=== PATIENT | female | born 1970 | race Caucasian/White ===

== ENCOUNTER 2023-09-28 10:33 | Outpatient (OUT) | payer MEDICARE, SELFPAY ==
--- NOTE | 2023-09-28 | XR_ITS ---
[address] [address] Patient Name: PRACHI PARHAM MRN: [id number] date: 1970 Sex: F Assigned Patient Location: Current Patient Location: Accession/Order Number: [id number] Exam Date: 09/28/2023 10:38 Report Date: 09/28/2023 11:41 At the request of: SRIDHAR GUTIÉRREZ Procedure: XR foot TAMIKO min 3V EXAMINATION: XR ankle TAMIKO min 3V, XR foot TAMIKO min 3V HISTORY: BILATERAL ANKLE PAIN COMPARISON: No relevant comparison available. FINDINGS: RIGHT FINDINGS: BONES: No acute fracture or dislocation. Moderate enthesopathic spurring of the calcaneus. Mild degenerative changes with marginal osteophyte formation SOFT TISSUES: Anterior distal lower leg soft tissue calcifications, nonspecific OTHER: Negative. LEFT FINDINGS: BONES: No acute fracture or dislocation. Moderate enthesopathic spurring of the calcaneus. Mild degenerative changes with marginal osteophyte formation SOFT TISSUES: Negative. No visible soft tissue swelling. OTHER: Negative. XR/XR foot TAMIKO min 3V IMPRESSION: RIGHT CONCLUSION: Mild degenerative changes with enthesopathic spurring of the calcaneus LEFT CONCLUSION: Mild degenerative changes with enthesopathic spurring of the calcaneus Electronically authenticated by: WILLAM PAGE Date: 09/28/2023 11:41
--- NOTE | 2023-09-28 | XR_ITS ---
[address] [address] Patient Name: PRACHI PARHAM MRN: [id number] date: 1970 Sex: F Assigned Patient Location: Current Patient Location: Accession/Order Number: [id number] Exam Date: 09/28/2023 10:38 Report Date: 09/28/2023 11:41 At the request of: SRIDHAR GUTIÉRREZ Procedure: XR ankle TAMIKO min 3V EXAMINATION: XR ankle TAMIKO min 3V, XR foot TAMIKO min 3V HISTORY: BILATERAL ANKLE PAIN COMPARISON: No relevant comparison available. FINDINGS: RIGHT FINDINGS: BONES: No acute fracture or dislocation. Moderate enthesopathic spurring of the calcaneus. Mild degenerative changes with marginal osteophyte formation SOFT TISSUES: Anterior distal lower leg soft tissue calcifications, nonspecific OTHER: Negative. LEFT FINDINGS: BONES: No acute fracture or dislocation. Moderate enthesopathic spurring of the calcaneus. Mild degenerative changes with marginal osteophyte formation SOFT TISSUES: Negative. No visible soft tissue swelling. OTHER: Negative. XR/XR ankle TAMIKO min 3V IMPRESSION: RIGHT CONCLUSION: Mild degenerative changes with enthesopathic spurring of the calcaneus LEFT CONCLUSION: Mild degenerative changes with enthesopathic spurring of the calcaneus Electronically authenticated by: WILLAM PAGE Date: 09/28/2023 11:41
== END 2023-09-28 10:34 | disposition home or self-care (01) ==
PROVIDERS: Visit Provider Podiatrist Foot & Ankle Surgery
DX: M25.571 Pain in right ankle and joints of right foot (principal); M25.572 Pain in left ankle and joints of left foot; M79.671 Pain in right foot; M79.672 Pain in left foot; M77.32 Calcaneal spur, left foot; M77.31 Calcaneal spur, right foot
CPT/HCPCS: 73610; 73630

== ENCOUNTER 2024-01-14 17:46 | Emergency (ER) | payer MEDICARE, SELFPAY ==
[2024-01-14 17:54] VITALS: BP 170/92; PULSE 79; TEMP 36.6; O2SAT 96; BMI 31.3
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
[2024-01-14 19:44] VITALS: BP 142/88
[2024-01-14] MEDS: KETOROLAC TROMETHAMINE 10 MG TABLET PO (20:38)
[2024-01-14] MEDS: METHOCARBAMOL 500 MG TABLET 1000 MG PO (20:39)
== END 2024-01-14 20:42 | disposition home or self-care (01) ==
PROVIDERS: Emergency Provider Emergency Medicine
DX: M54.2 Cervicalgia (principal); M79.602 Pain in left arm; E04.1 Nontoxic single thyroid nodule
CPT/HCPCS: 72125; 72128; 72170; 73030; 99284